=== PATIENT | male | born 1965 | race Caucasian/White ===

== ENCOUNTER 2022-03-26 15:03 | Emergency (ER) | payer OTHER ==
[2022-03-26] MEDS ORDERED: Morphine 4 MG/ML Syringe IVPUSH ONE ×2 (15:24→16:27)
[2022-03-26 15:47] LABS: CARBON DIOXIDE,CO2 27.7 mmol/L (21.0-32.0); POTASSIUM,K 3.7 mmol/L (3.5-5.1)
[2022-03-26] MEDS ORDERED: Iopamidol 755 MG/ML 500 ML Multipack Bottle IVPUSH ONE (16:19)
[2022-03-26] MEDS ORDERED: Lidocaine 5% 700 MG Patch TOP ONE (16:58)
[2022-03-26] MEDS ORDERED: Ibuprofen 400 MG Tab PO ONE (16:58)
[2022-03-26] MEDS ORDERED: Acetaminophen 325 MG Tab PO ONE (16:58)
[2022-03-26] MEDS ORDERED: Oxybutynin 5 MG Tab PO STA (18:42)
[2022-03-26] MEDS ORDERED: oxyCODONE 5 MG Tab PO ONE ×2 (18:43→18:44)
== END 2022-03-26 19:07 | disposition home or self-care (01) ==
LOC: MW.ED 15:03
DX: S22.42XA Multiple fractures of ribs, left side, initial encounter for closed fracture (principal); Z88.1 Allergy status to other antibiotic agents; Z88.5 Allergy status to narcotic agent; V49.50XA Passenger injured in collision with unspecified motor vehicles in traffic accident, initial encounter; Y92.410 Unspecified street and highway as the place of occurrence of the external cause
CPT/HCPCS: 36415; 71045; 71260; 80053; 85025; 85610; 85730; 96374; 96376; 99284; A9270; J2270; Q9967